=== PATIENT | male | born 1985 | race Caucasian/White ===

== ENCOUNTER 2020-05-24 12:01 | Outpatient (CLI) | payer OTHER ==
--- NOTE | 2020-05-24 13:38 | RAD ---
XR Lumbar Spine Comp W Bending History: Low back pain Comparison: None. Findings: Low-grade levoscoliosis lumbar spine. No acute fracture or malalignment. 5 nonrib-bearing l umbar type vertebra. SI joints are normal. Minimal narrowing of L4/L5 and L5/S1 facet joints. No abnormal translation with flexion or extension. Vertebral body heights and disc spaces are relatively maintained. Impression: 1. Minimal levoscoliosis lumbar spine. 2. Minimal facet arthropathy lower lumbar spine. 3. With lumbar extension there is abutment of the L5/S1 spinous processes with subtle sclerosis can b e a source of pain with lumbar extension.
== END 2020-05-24 12:02 | disposition home or self-care (01) ==
LOC: SCSRAD 12:01
PROVIDERS: ATTEND Student in an Organized Health Care Education/Training Program
DX: M54.5 Low back pain (principal); M41.9 Scoliosis, unspecified; M47.816 Spondylosis without myelopathy or radiculopathy, lumbar region
CPT/HCPCS: 72100

== ENCOUNTER 2020-06-19 13:21 | Outpatient (CLI) | payer OTHER ==
--- NOTE | 2020-06-19 14:09 | MRI ---
MRI Lumbar Spine Noncontrast: HISTORY: Lower back pain with pain radiating to left hip and left leg. Patient states pain is now ready into r ight buttock. COMPARISON: None FINDINGS: The visualized retroperitoneal structures demonstrate a normal appearance. Conus medullaris is normal in morphology and terminates at the L1-2 level. Paravertebral soft tissues have a normal appearance. L1-2: There is no disc bulge or disc herniation. Central spinal canal and neural foramina are patent. L2-3: There is no disc bulge or disc herniation. Central spinal canal and neural foramina are patent. L3-4: There are Schmorl's nodes in the endplates of the L3 and L4 vertebral bodies. There is slight h eight loss of the intervertebral disc. A mild disc osteophyte complex is present with mild facet degenerative changes including fluid signal intensity in the facet joints. Findings result in mild ef facement of the ventral aspect of the thecal sac. No significant neural foraminal narrowing is present. L4-5: Mild disc osteophyte complex is present. There is a tiny annular tear involving the left rug [place] olateral margin of the intervertebral disc. There is slight effacement of the ventral aspect of the thecal sac. Minimal left-sided neural foraminal narrowing is present. No significant right-sided neur al foraminal narrowing. L5-S1: Loss of intervertebral disc height with loss of signal intensity in the intervertebral disc as well. There is a broad-based disc osteophyte complex. Disc bulge centrally appears to contact the bilateral traversing S1 nerve roots without significant deformity of the nerve roots. There is no mas s effect on the thecal sac. Facet degenerative changes are present at this level. Minimal bilateral neural foraminal narrowing is noted. A very tiny subcentimeter increased T2-weighted signal intensity focus is seen adjacent to the superior aspect of the right facet joint likely due to very tiny synovial cyst. IMPRESSION: Mild degenerative changes lower lumbar spine. There is no high-grade central canal or neural foramina l narrowing. However, the disc osteophyte complex at the L5-S1 level does encroach on and appears to contact the traversing bilateral S1 nerve roots.
== END 2020-06-19 13:22 | disposition home or self-care (01) ==
LOC: BICMRI 13:21
PROVIDERS: ATTEND Student in an Organized Health Care Education/Training Program
DX: M54.5 Low back pain (principal); M47.816 Spondylosis without myelopathy or radiculopathy, lumbar region
CPT/HCPCS: 72148

== ENCOUNTER 2020-07-11 19:23 | Emergency (ER) | payer OTHER ==
[2020-07-11] MEDS ORDERED: predniSONE 20 MG TAB ONE ×2 (20:50)
== END 2020-07-11 20:55 | disposition home or self-care (01) ==
LOC: ERS 19:23
DX: M54.41 Lumbago with sciatica, right side (principal); F17.220 Nicotine dependence, chewing tobacco, uncomplicated
CPT/HCPCS: 99283; J7512

== ENCOUNTER 2021-01-30 11:37 | Emergency (ER) | payer OTHER ==
[2021-01-30 12:47] LABS: #Eosinphils 0.2 thou/uL (0.0-0.7); #Lymphocytes 1.3 thou/uL (1.20-3.40); #Monocytes 0.3 thou/uL (0.11-0.59); %Basophils 0.4 % (0.0-1.0); %Eosinophils 3.3 % (0.0-10.0); %Lymphocytes 18.3 % (21.0-51.0); %Monocytes 4.1 % (0.0-10.0); %Neutrophils 73.9 % (42.0-75.0); Hemoglobin 15.4 g/dL (14.0-18.0); Mean Corpuscular HGB CONC 35.2 g/dL (32.0-36.0); Mean Corpuscular Hemoglobin 31.6 pg (27.0-31.0); Mean Corpuscular Volume 89.8 fL (78.0-98.0); Mean Platelet Volume 9.9 fL (7.4-10.4); Platelet Count 164 thou/uL (130-400); RBC Distribution Width 12.1 % (11.5-14.5); Red Blood Cell (RBC) Count 4.88 mill/uL (4.70-6.10); White Blood Cell (WBC) Count 6.8 thou/uL (4.8-10.8)
[2021-01-30 13:09] LABS: ALT (SGPT) 50 U/L (8-55); AST (SGOT) 27 U/L (5-34); Albumin 4.3 g/dL (3.5-5.0); Alkaline Phosphatase 107 U/L (40-110); Anion Gap 11 mmol/L (10-20); BUN (Urea Nitrogen) 8 mg/dL (8.9-20.6); Bilirubin, Total 0.6 mg/dL (0.2-1.2); Calc. Creatinine Clearance 0 mL/min (70-130); Calcium 9.4 mg/dL (7.8-10.44); Carbon Dioxide 28 mmol/L (22-29); Chloride 105 mmol/L (98-107); Globulin 2.3 g/dL (2.4-3.5); Glucose 90 mg/dL (70-105); Lipase 33 U/L (8-78); Potassium 4.1 mmol/L (3.5-5.1); Protein, Total 6.6 g/dL (6.0-8.3); Sodium 140 mmol/L (136-145)
[2021-01-30] MEDS ORDERED: Ketorolac Tromethamine 30 MG/ML VIAL ONE (15:35)
== END 2021-01-30 15:47 | disposition home or self-care (01) ==
LOC: ERS 11:37
DX: S39.011A Strain of muscle, fascia and tendon of abdomen, initial encounter (principal); F17.220 Nicotine dependence, chewing tobacco, uncomplicated; Z86.16 Personal history of COVID-19; X58.XXXA Exposure to other specified factors, initial encounter
CPT/HCPCS: 36415; 80053; 83690; 85025; 96372; 99284; J1885